=== PATIENT | male | born 1945 | race Caucasian/White ===

== ENCOUNTER 2018-03-21 14:55 | Inpatient (IN) | payer MEDICARE, BC ==
--- NOTE | 2018-03-21 15:28 | ED ---
General Adult HPI - General Chief complaint: Shortness of Breath Stated complaint: sent him for irregular arrhythmia Time Seen by Provider: 03/21/18 15:20 Source: patient, RN notes reviewed Mode of arrival: wheelchair Limitations: no limitations - History of Present Illness Initial comments: Patient is a pleasant 72-year-old male presenting to the emergency Department with concern for atrial fibrillation. Patient states he went to the doctor's office for some mild shortness of breath and cough that has been occurring for the past several days. Patient states shortness of breath has occurred while lying down and sleep as well as with some exertion. No history of similar symptoms previously. Patient did recently have pneumonia. No fever. No chest pain. No palpitations. Patient was found to have irregular heartbeat and sent to emergency department. - Related Data Home Medications Medication Instructions Recorded Confirmed Aspirin 650 mg PO ONCE PRN 03/21/18 03/21/18 Lisinopril 40 mg PO DAILY 03/21/18 03/21/18 Metoprolol Tartrate [Lopressor] 50 mg PO DIRECTED 03/21/18 03/21/18 Allergies Allergy/AdvReac Type Severity Reaction Status Date / Time No Known Allergies Allergy Verified 03/21/18 16:32 Review of Systems ROS Statement: Those systems with pertinent positive or pertinent negative responses have been documented in the HPI. ROS Other: All systems not noted in ROS Statement are negative. Constitutional: Denies: fever, chills Eyes: Denies: eye pain ENT: Denies: ear pain Respiratory: Reports: cough, dyspnea Cardiovascular: Denies: chest pain, palpitations Endocrine: Reports: fatigue Gastrointestinal: Denies: abdominal pain, nausea, vomiting Genitourinary: Denies: dysuria Musculoskeletal: Denies: back pain Skin: Denies: rash Neurological: Denies: weakness Past Medical History Past Medical History: Hypertension History of Any Multi-Drug Resistant Organisms: None Reported Past Surgical History: Orthopedic Surgery Past Psychological History: No Psychological Hx Reported Smoking Status: Current every day smoker Past Alcohol Use History: None Reported Past Drug Use History: None Reported General Exam Limitations: no limitations General appearance: alert, in no apparent distress Head exam: Present: atraumatic Eye exam: Present: normal appearance ENT exam: Present: normal exam Neck exam: Present: normal inspection Respiratory exam: Present: normal lung sounds bilaterally. Absent: respiratory distress Cardiovascular Exam: Present: tachycardia, irregular rhythm Expanded Peripheral pulses: 2+: Radial (R), Radial (L), Dorsalis Pedis (R), Dorsalis Pedis (L) GI/Abdominal exam: Present: soft. Absent: tenderness Extremities exam: Present: pedal edema (Trace bilateral). Absent: calf tenderness Back exam: Present: normal inspection Neurological exam: Present: alert Psychiatric exam: Present: normal affect, normal mood Skin exam: Present: normal color Course Vital Signs 03/21/18 03/21/18 03/21/18 15:02 15:13 15:53 Temperature 97.7 F Pulse Rate 57 L 98 Respiratory 18 18 Rate Blood Pressure 158/108 O2 Sat by Pulse 98 Oximetry 03/21/18 16:22 Temperature Pulse Rate 93 Respiratory 18 Rate Blood Pressure 105/88 O2 Sat by Pulse 96 Oximetry EKG Findings - EKG Comments: EKG Findings:: A. fib with RVR, rate 1:15. QRS 118. QT 366. QTc 506. Left axis. Incomplete right bundle-branch block. No acute ST change. Medical Decision Making - Medical Decision Making Patient reevaluated and updated. Heart rate in the unchanged. Case discussed in detail with Dr. Estrella, who will admit his patient with consult for cardiology. Patient updated. - Lab Data Result diagrams: 03/21/18 15:39 03/21/18 15:39 Lab Results 03/21/18 03/21/18 03/21/18 Range/Units 15:39 15:39 15:39 WBC 13.7 H (3.8-10.6) k/uL RBC 5.10 (4.30-5.90) m/uL Hgb 14.8 (13.0-17.5) gm/dL Hct 45.4 (39.0-53.0) % MCV 89.0 (80.0-100.0) fL MCH 28.9 (25.0-35.0) pg MCHC 32.5 (31.0-37.0) g/dL RDW 14.0 (11.5-15.5) % Plt Count 249 (150-450) k/uL Neutrophils % 70 % Lymphocytes % 19 % Monocytes % 6 % Eosinophils % 3 % Basophils % 1 % Neutrophils # 9.5 H (1.3-7.7) k/uL Lymphocytes # 2.6 (1.0-4.8) k/uL Monocytes # 0.9 (0-1.0) k/uL Eosinophils # 0.3 (0-0.7) k/uL Basophils # 0.1 (0-0.2) k/uL PT (9.0-12.0) sec INR (<1.2) APTT (22.0-30.0) sec Sodium 139 (137-145) mmol/L Potassium 4.7 (3.5-5.1) mmol/L Chloride 108 H (98-107) mmol/L Carbon Dioxide 22 (22-30) mmol/L Anion Gap 9 mmol/L BUN 15 (9-20) mg/dL Creatinine 1.05 (0.66-1.25) mg/dL Est GFR (CKD-EPI)AfAm 82 (>60 ml/min/1.73 sqM) Est GFR (CKD-EPI)NonAf 71 (>60 ml/min/1.73 sqM) Glucose 119 H (74-99) mg/dL Calcium 9.5 (8.4-10.2) mg/dL Magnesium 2.0 (1.6-2.3) mg/dL Total Bilirubin 0.9 (0.2-1.3) mg/dL AST 29 (17-59) U/L ALT 36 (21-72) U/L Alkaline Phosphatase 75 (38-126) U/L Total Creatine Kinase 53 L (55-170) U/L CK-MB (CK-2) 1.2 (0.0-2.4) ng/mL CK-MB (CK-2) Rel Index 2.3 Troponin I 0.036 H* (0.000-0.034) ng/mL Total Protein 7.3 (6.3-8.2) g/dL Albumin 4.2 (3.5-5.0) g/dL TSH 2.450 (0.465-4.680) mIU/L Free T4 1.06 (0.78-2.19) ng/dL Free T3 pg/mL 3.8 (2.8-5.3) pg/ml 03/21/18 Range/Units 15:39 WBC (3.8-10.6) k/uL RBC (4.30-5.90) m/uL Hgb (13.0-17.5) gm/dL Hct (39.0-53.0) % MCV (80.0-100.0) fL MCH (25.0-35.0) pg MCHC (31.0-37.0) g/dL RDW (11.5-15.5) % Plt Count (150-450) k/uL Neutrophils % % Lymphocytes % % Monocytes % % Eosinophils % % Basophils % % Neutrophils # (1.3-7.7) k/uL Lymphocytes # (1.0-4.8) k/uL Monocytes # (0-1.0) k/uL Eosinophils # (0-0.7) k/uL Basophils # (0-0.2) k/uL PT 10.9 (9.0-12.0) sec INR 1.1 (<1.2) APTT 22.7 (22.0-30.0) sec Sodium (137-145) mmol/L Potassium (3.5-5.1) mmol/L Chloride (98-107) mmol/L Carbon Dioxide (22-30) mmol/L Anion Gap mmol/L BUN (9-20) mg/dL Creatinine (0.66-1.25) mg/dL Est GFR (CKD-EPI)AfAm (>60 ml/min/1.73 sqM) Est GFR (CKD-EPI)NonAf (>60 ml/min/1.73 sqM) Glucose (74-99) mg/dL Calcium (8.4-10.2) mg/dL Magnesium (1.6-2.3) mg/dL Total Bilirubin (0.2-1.3) mg/dL AST (17-59) U/L ALT (21-72) U/L Alkaline Phosphatase (38-126) U/L Total Creatine Kinase (55-170) U/L CK-MB (CK-2) (0.0-2.4) ng/mL CK-MB (CK-2) Rel Index Troponin I (0.000-0.034) ng/mL Total Protein (6.3-8.2) g/dL Albumin (3.5-5.0) g/dL TSH (0.465-4.680) mIU/L Free T4 (0.78-2.19) ng/dL Free T3 pg/mL (2.8-5.3) pg/ml - Radiology Data Radiology results: image reviewed (Chest x-ray shows cardiomegaly) Critical Care Time Critical Care Time: Yes Total Critical Care Time: 32 Disposition Clinical Impression: Atrial fibrillation with RVR Disposition: ADMITTED IP TO THIS HOSP Is patient prescribed a controlled substance at d/c from ED?: No Referrals: Zhang Almonte Jr, [Primary Care Provider] - 1-2 days Decision Time: 17:12
--- NOTE | 2018-03-21 16:15 | XR ---
EXAMINATION TYPE: XR chest 2V DATE OF EXAM: 03/21/2018 COMPARISON: NONE HISTORY: Shortness of breath and atrial fibrillation. TECHNIQUE: Frontal and lateral views of the chest are obtained. FINDINGS: Overlying EKG leads are seen. There is no focal air space opacity, pleural effusion, or pne umothorax seen. The cardiac silhouette size is enlarged. The osseous structures are intact. IMPRESSION: Cardiomegaly without acute pulmonary process.
[2018-03-21 16:17] LABS: Basophils # (A) 0.1 k/uL (0-0.2); Basophils % (A) 1 %; Eosinophils # (A) 0.3 k/uL (0-0.7); Eosinophils % (A) 3 %; HCT 45.4 % (39.0-53.0); HGB 14.8 gm/dL (13.0-17.5); Lymphocytes # (A) 2.6 k/uL (1.0-4.8); Lymphocytes % (A) 19 %; MCH 28.9 pg (25.0-35.0); MCHC 32.5 g/dL (31.0-37.0); Mean Platelet Volume 7.5; Monocytes # (A) 0.9 k/uL (0-1.0); Monocytes % (A) 6 %; Neutrophils # (A) 9.5 k/uL (1.3-7.7); Neutrophils % (A) 70 %; Platelet Count 249 k/uL (150-450); WBC 13.7 k/uL (3.8-10.6)
[2018-03-21 16:27] LABS: Albumin 4.2 g/dL (3.5-5.0); Calcium 9.5 mg/dL (8.4-10.2); Potassium 4.7 mmol/L (3.5-5.1); Total Bilirubin 0.9 mg/dL (0.2-1.3); Total Protein 7.3 g/dL (6.3-8.2)
[2018-03-21 16:33] LABS: INR 1.1 (<1.2); Partial Thromboplastin Time 22.7 sec (22.0-30.0); Prothrombin Time 10.9 sec (9.0-12.0)
[2018-03-21] MEDS: DILTIAZEM 50 MG in SODIUM CHLORIDE 0.9% 40 ML IV SCH (16:40)
[2018-03-21 16:43] LABS: T4, Free (Free Thyroxine) 1.06 ng/dL (0.78-2.19)
[2018-03-21 16:55] LABS: Creatine Kinase MB 1.2 ng/mL (0.0-2.4)
[2018-03-21 17:02] LABS: Troponin I 0.036 ng/mL (0.000-0.034)
[2018-03-21] MEDS ORDERED: ASPIRIN 81 MG PO STA (17:12)
[2018-03-21] MEDS ORDERED: NITROGLYCERIN SL TABS 0.4 MG TAB SUBLINGUAL PRN (17:12)
[2018-03-21] MEDS ORDERED: HEPARIN SODIUM,PORCINE 5,000 UNIT/ML 1 ML VIAL IV PRN (17:12)
[2018-03-21] MEDS ORDERED: HEPARIN SODIUM,PORCINE 5,000 UNIT/ML 1 ML VIAL IV ONE (17:12)
[2018-03-21] MEDS ORDERED: HEPARIN SOD,PORK IN 0.45% NACL 25,000 UNIT in 0.45% NACL 1 500ML.BAG IV SCH (17:15)
[2018-03-21] MEDS ORDERED: METOPROLOL TARTRATE 50 MG TAB PO SCH (17:15)
[2018-03-21 19:33] LABS: Creatine Kinase MB 1.1 ng/mL (0.0-2.4)
[2018-03-21 19:38] LABS: Troponin I 0.045 ng/mL (0.000-0.034)
[2018-03-22 02:54] LABS: Creatine Kinase MB 0.9 ng/mL (0.0-2.4)
[2018-03-22 02:59] LABS: Troponin I 0.042 ng/mL (0.000-0.034)
[2018-03-22] MEDS: DILTIAZEM 50 MG in SODIUM CHLORIDE 0.9% 40 ML IV SCH (04:45)
[2018-03-22 08:03] LABS: Cholesterol 147 mg/dL (<200); HDL Cholesterol 32 mg/dL (40-60); LDL Cholesterol,Calculated 79 mg/dL (0-99); Triglycerides 180 mg/dL (<150)
[2018-03-22] MEDS: METOPROLOL TARTRATE 50 MG TAB PO SCH ×2 (08:55→20:43)
[2018-03-22] MEDS: LISINOPRIL 20 MG TAB PO SCH (08:56)
[2018-03-22] MEDS ORDERED: ASPIRIN 325 MG TAB PO SCH (09:00)
[2018-03-22 09:59] LABS: Mean Platelet Volume 7.4; Platelet Count 204 k/uL (150-450)
--- NOTE | 2018-03-22 11:00 | P.CRDCN ---
History of Present Illness Consult date: 03/22/18 Requesting physician: Zhang Almonte Jr Consult reason: atrial fibrillation Chief complaint: Shortness of breath History of present illness: His is a 72-year-old gentleman with history of hypertension, family history of premature coronary artery disease in his mother who had a myocardial infarction at the age of 50, who presented to the hospital after an EKG was performed at his primary care doctor's office which showed atrial fibrillation with rapid ventricular response. According to the patient, he has had 2 bad bouts of pneumonia over the past few months. He states that he has been more short of breath than usual, and just walking to the mailbox he becomes somewhat weak and tired. He denies any overt palpitations, no discomfort in the chest. He went to see his primary care physician in the office because of these symptoms, and EKG was performed there. Patient was found to be in A. fib with RVR and was brought to the emergency room for further evaluation. According to the patient, he has not been told in the past to have any irregular heartbeat. Chest x-ray on admission here showed cardiomegaly without any acute pulmonary process. Initial EKG showed atrial fibrillation with right bundle branch block pattern, nonspecific ST-T wave changes and rapid ventricular response. Blood pressure on arrival 158/108, heart rate in the 90s, 98% on room air. I pressure this morning 123/60 with a heart rate in the low 100s, 98% on room air. White blood cell count 13.7, heme 1114.8, platelet count 249. Sodium 139 , potassium 4.7, BUN 15, creatinine 1.05. Troponins 0.036, 0.045, 0.042. TSH and free T4 are normal. Cholesterol 147, LDL 79, triglycerides 180, and HDL 32. At the time of my examination this morning, patient is lying down in bed, feels a little tired but overall I did have a discussion with him and his regarding the importance of anticoagulation with atrial fibrillation for stroke prevention. He is currently on IV heparin, we will start him on Eliquis and check regarding coverage for the patient. We will also decrease his aspirin to 81 mg daily. Past Medical History Past Medical History: Asthma, Hypertension Additional Past Medical History / Comment(s): asthma as chil- no problem since, aubrie, "humairattered lt elboe(sx), pt stated "it takes med a bit to get stream going when i pee" History of Any Multi-Drug Resistant Organisms: None Reported Past Surgical History: Orthopedic Surgery, Tonsillectomy Additional Past Surgical History / Comment(s): lt elbow sx,4 upper dental implants Past Anesthesia/Blood Transfusion Reactions: No Reported Reaction Smoking Status: Former smoker - Past Family History Mother Family Medical History: Myocardial Infarction (ID) Additional Family Medical History / Comment(s): age 50 from [place] Father Additional Family Medical History / Comment(s): age 71 -[place] Brother(s) History Unknown: Yes Additional Family Medical History / Comment(s): has 3 brothers hx unk Sister(s) History Unknown: Yes Additional Family Medical History / Comment(s): 1 sister- hx unk Medications and Allergies Home Medications Medication Instructions Recorded Confirmed Type Aspirin 650 mg PO ONCE PRN 03/21/18 03/21/18 History Lisinopril 40 mg PO DAILY 03/21/18 03/21/18 History Metoprolol Tartrate [Lopressor] 50 mg PO DIRECTED 03/21/18 03/21/18 History Allergies Allergy/AdvReac Type Severity Reaction Status Date / Time No Known Allergies Allergy Verified 03/21/18 16:32 Physical Exam Vitals: Vital Signs Temp Pulse Pulse Resp BP BP Pulse Ox 03/22/18 08:00 98.4 F 105 H 18 123/64 98 03/22/18 04:00 98.7 F 103 H 18 144/95 97 03/22/18 00:00 90 20 115/67 97 03/21/18 20:00 98.3 F 101 H 18 123/88 96 03/21/18 19:07 111 H 16 132/110 98 03/21/18 18:34 107 H 18 130/110 97 03/21/18 17:58 89 18 109/90 97 03/21/18 16:22 93 18 105/88 96 03/21/18 15:53 98 03/21/18 15:13 18 03/21/18 15:02 97.7 F 57 L 18 158/108 98 Intake and Output 03/21/18 03/22/18 03/22/18 22:59 06:59 14:59 Intake Total 216.329 406.058 Balance 216.329 406.058 Intake: Intake, IV Titration 216.329 166.058 Amount Diltiazem 50 mg In Sodium 50 Chloride 0.9% 40 ml @ 5 MG/HR 5 mls/hr IV .Q10H BR[facility]ON Rx#:[id number] Heparin Sod,Pork in 0.45% 166.329 166.058 NaCl 25,000 unit In 0.45 % NaCl 1 500ml.bag @ 10.8 UNITS/KG/HR 20.08 mls/hr IV .Q24H BRANDON Rx#: [id number] Oral 240 Other: Voiding Method Toilet Toilet Toilet # Voids 1 1 Weight 96.8 kg 96.8 kg PHYSICAL EXAMINATION: GENERAL: 72-year-old gentleman in no acute distress at the time of my examination HEENT: Head is atraumatic, normocephalic. Pupils equal, round. Sclera anicteric. Conjunctiva are clear. Mucous membranes of the mouth are moist. Neck is supple. There is no elevated jugular venous pressure. No carotid bruit is heard. HEART EXAMINATION: Heart S1, S2 normal. No murmur or gallop heard. CHEST EXAMINATION: Lungs are clear to auscultation and precussion. No chest wall tenderness is noted on palpation or with deep breathing. ABDOMEN: Soft, obese, nontender. Bowel sounds are heard. No organomegaly noted. EXTREMITIES: 2+ peripheral pulses with no evidence of peripheral edema and no calf tenderness noted. NEUROLOGIC patient is awake, alert and oriented 3. . Results 03/22/18 09:45 03/21/18 15:39 Cardiac Enzymes 03/21/18 03/21/18 03/21/18 Range/Units 15:39 15:39 18:02 AST 29 (17-59) U/L CK-MB (CK-2) 1.2 1.1 (0.0-2.4) ng/mL Troponin I 0.036 H* 0.045 H* (0.000-0.034) ng/mL 03/22/18 Range/Units 01:44 AST (17-59) U/L CK-MB (CK-2) 0.9 (0.0-2.4) ng/mL Troponin I 0.042 H* (0.000-0.034) ng/mL Coagulation 1103/21/18 03/22/18 Range/Units 15:39 18:02 01:44 PT 10.9 (9.0-12.0) sec APTT 22.7 23.1 31.1 H (22.0-30.0) sec 03/22/18 Range/Units 09:45 PT (9.0-12.0) sec APTT 30.8 H (22.0-30.0) sec Lipids 03/22/18 Range/Units 06:41 Triglycerides 180 H (<150) mg/dL Cholesterol 147 (<200) mg/dL HDL Cholesterol 32 L (40-60) mg/dL CBC 03/21/18 03/22/18 Range/Units 15:39 09:45 WBC 13.7 H (3.8-10.6) k/uL RBC 5.10 (4.30-5.90) m/uL Hgb 14.8 (13.0-17.5) gm/dL Hct 45.4 (39.0-53.0) % Plt Count 249 204 (150-450) k/uL Comprehensive Metabolic Panel 03/21/18 Range/Units 15:39 Sodium 139 (137-145) mmol/L Potassium 4.7 (3.5-5.1) mmol/L Chloride 108 H (98-107) mmol/L Carbon Dioxide 22 (22-30) mmol/L BUN 15 (9-20) mg/dL Creatinine 1.05 (0.66-1.25) mg/dL Glucose 119 H (74-99) mg/dL Calcium 9.5 (8.4-10.2) mg/dL AST 29 (17-59) U/L ALT 36 (21-72) U/L Alkaline Phosphatase 75 (38-126) U/L Total Protein 7.3 (6.3-8.2) g/dL Albumin 4.2 (3.5-5.0) g/dL Current Medications Generic Name Dose Route Start Last Admin Trade Name Freq PRN Reason Stop Dose Admin Aspirin 325 mg 03/22/18 09:00 03/22/18 08:56 Aspirin PO 325 mg DAILY BRANDON Administration Heparin Sodium (Porcine) 0 unit 03/21/18 17:12 Heparin IV Q6HR PRN Low PTT Protocol Diltiazem HCl 50 mg/ Sodium 50 mls @ 5 mls/hr 03/21/18 15:30 03/22/18 04:45 Chloride IV 5 mg/hr .Q10H BR[facility]ON 5 mls/hr Administration 5 MG/HR Heparin Sodium/Sodium Chloride 500 mls @ 20.08 mls/hr 03/21/18 17:15 08:58 25,000 unit/ Sodium Chloride IV 13.8 units/kg/hr .Q24H BRANDON 25.66 mls/hr Titration Protocol 10.8 UNITS/KG/HR Lisinopril 40 mg 03/22/18 09:00 03/22/18 08:56 Zestril PO 40 mg DAILY BRANDON Administration Metoprolol Tartrate 50 mg 03/22/18 09:00 03/22/18 08:55 Lopressor PO 50 mg BID BRANDON Administration Nitroglycerin 0.4 mg 03/21/18 17:12 Nitrostat SUBLINGUAL Q5M PRN Chest Pain Sodium Chloride 10 ml 03/21/18 21:00 03/22/18 09:00 Saline Flush IV Not Given BID BRANDON Intake and Output 03/21/18 03/22/18 03/22/18 22:59 06:59 14:59 Intake Total 216.329 406.058 Balance 216.329 406.058 Intake: Intake, IV Titration 216.329 166.058 Amount Diltiazem 50 mg In Sodium 50 Chloride 0.9% 40 ml @ 5 MG/HR 5 mls/hr IV .Q10H [facility] Rx#:[id number] Heparin Sod,Pork in 0.45% 166.329 166.058 NaCl 25,000 unit In 0.45 % NaCl 1 500ml.bag @ 10.8 UNITS/KG/HR 20.08 mls/hr IV .Q24H [facility]ON Rx#: [id number] Oral 240 Other: Voiding Method Toilet Toilet Toilet # Voids 1 1 Weight 96.8 kg 96.8 kg 03/22/18 09:45 03/21/18 15:39 EKG Interpretations (text) EKG shows atrial fibrillation with moderately rapid ventricular response Assessment and Plan Plan: Assessment and plan #1 atrial fibrillation with moderately rapid ventricular response, appears to be new for the patient, . #2 hypertension #3 family history of premature coronary artery disease #4 recent pneumonia #5 abnormal troponins likely representing a type II ID. Plan We'll obtain an echocardiogram with Doppler study. TSH level came back to be normal. We will discontinue the heparin and start the patient on Eliquis. Discontinue IV Cardizem, heart rate in the 80s this morning. Continue metoprolol 50 twice a day. Further recommendations to follow. DNP note has been reviewed, I agree with a documented findings and plan of care. Patient was seen and examined.
[2018-03-22] MEDS: APIXABAN 5 MG TAB PO SCH ×2 (11:14→20:43)
--- NOTE | 2018-03-22 11:17 | ECHOF ---
Referral Reason:New-onset A. fib MEASUREMENTS -------- HEIGHT: 180.3 cm WEIGHT: 96.6 kg BP: 144/95 RVIDd: 4.0 cm (< 3.3) IVSd: 1.3 cm (0.6 - 1.1) LVIDd: 5.4 cm (3.9 - 5.3) LVPWd: 1.3 cm (0.6 - 1.1) IVSs: 1.9 cm LVIDs: 4.2 cm LVPWs: 2.0 cm LA Diam: 3.2 cm (2.7 - 3.8) LAESV Index (A-L): 35.52 ml/m Ao Diam: 4.3 cm (2.0 - 3.7) AV Cusp: 2.2 cm (1.5 - 2.6) MV EXCURSION: 15.119 mm (> 18.000) MV EF SLOPE: 83 mm/s (70 - 150) EPSS: 1.5 cm AV maxP.13 mmHg AV meanP.25 mmHg AR PHT: 580 ms RAP: 15.00 mmHg RVSP: 56.36 mmHg FINDINGS -------- Atrial fibrillation. This was a technically adequate study. The left ventricular size is normal. There is mild concentric left ventricular hypertrophy. Overa ll left ventricular systolic function is moderate-severely impaired with, an EF between 30 - 35 %. The right ventricle is moderately enlarged. LA is moderately dilated 34-39 ml/m2 The right atrium is normal in size. There is mild aortic valve sclerosis. There is mild aortic regurgitation. Peak/mean gradient acro ss the Aortic Valve is 13.13mmHg / 7.25mmHg. The mitral valve leaflets are mildly thickened. [id number] mitral regurgitation is present. [id number] tricuspid regurgitation present. There is moderate to severe pulmonary hypertensio n. The right ventricular systolic pressure, as measured by Doppler, is 56.36mmHg. The pulmonic valve was not well visualized. The aortic root is dilated measuring 4.3cm. The inferior vena cava is dilated with poor inspiratory collapse which is consistent with estimated r ight atrial pressure of 15 mmHg. There is no pericardial effusion. CONCLUSIONS -------- 1. Atrial fibrillation. 2. This was a technically adequate study. 3. The left ventricular size is normal. 4. There is mild concentric left ventricular hypertrophy. 5. Overall left ventricular systolic function is moderate-severely impaired with, an EF between 30 - 35 %. 6. The right ventricle is moderately enlarged. 7. LA is moderately dilated 34-39 ml/m2 8. The right atrium is normal in size. 9. There is mild aortic valve sclerosis. 10. There is mild aortic regurgitation. 11. Peak/mean gradient across the Aortic Valve is 13.13mmHg / 7.25mmHg. 12. The mitral valve leaflets are mildly thickened. 13. [id number] mitral regurgitation is present. 14. [id number] tricuspid regurgitation present. 15. There is moderate to severe pulmonary hypertension. 16. The right ventricular systolic pressure, as measured by Doppler, is 56.36mmHg. 17. The pulmonic valve was not well visualized. 18. The aortic root is dilated measuring 4.3cm. 19. The inferior vena cava is dilated with poor inspiratory collapse which is consistent with estimat ed right atrial pressure of 15 mmHg. 20. There is no pericardial effusion. MEDIA RECONCILIATION SPECIALIST: Celena Mahmood RDCS
[2018-03-22] MEDS ORDERED: AMIODARONE 450 MG in DEXTROSE 5% IN WATER 250 ML IV SCH ×2 (13:00)
[2018-03-22] MEDS ORDERED: DEXTROSE 5% IN WATER 100 ML with AMIODARONE 150 MG IV ONE (13:00)
[2018-03-22] MEDS: AMIODARONE 450 MG in DEXTROSE 5% IN WATER 250 ML IV SCH ×4 (14:12→20:35)
--- NOTE | 2018-03-22 14:33 | P.HPIM ---
History of Present Illness H&P Date: 03/22/18 Chief Complaint: sent by PCP for afib 72-year-old male who presented to the emergency room on 03/21/2018 after he was evaluated at his primary care physicians office for a chief complaint of shortness of breath. An EKG performed at the office revealed atrial fib and the patient was sent to the emergency room for further evaluation. The patient has a history of hypertension. He is a former cigarette smoker and smoked 1 PPD until the age of 38. EKG on admission reveals atrial fibrillation with rapid ventricular response. Heart rate 115. Chest x-ray revealed cardiomegaly without acute pulmonary process. Laboratory data upon admission reveals WBC 13.7. Hemoglobin 14.8. Blood count 249. Sodium 139. Potassium 4.7. BUN 15. Creatinine 1.05. Magnesium 2.0. Troponin 0.036. 0.045. 0.042. TSH 2.45. Triglycerides 180. Cholesterol 147. LDL 79. HDL 32. He was started on a cardizem and heparin drip and admitted to the hospital under the care of Dr. Almonte. Consultations were placed to cardiology. Review of Systems Those systems with pertinent positive or pertinent negative responses have been documented in the HPI Past Medical History Past Medical History: Asthma, Hypertension Additional Past Medical History / Comment(s): asthma as chil- no problem since, aubrie, "shattered lt elboe(sx), pt stated "it takes med a bit to get stream going when i pee" History of Any Multi-Drug Resistant Organisms: None Reported Past Surgical History: Orthopedic Surgery, Tonsillectomy Additional Past Surgical History / Comment(s): lt elbow sx,4 upper dental implants Past Anesthesia/Blood Transfusion Reactions: No Reported Reaction Smoking Status: Former smoker - Past Family History Mother Family Medical History: Myocardial Infarction (NM) Additional Family Medical History / Comment(s): age 50 from [place] Father Additional Family Medical History / Comment(s): age 71 -[place] Brother(s) History Unknown: Yes Additional Family Medical History / Comment(s): has 3 brothers hx unk Sister(s) History Unknown: Yes Additional Family Medical History / Comment(s): 1 sister- hx unk Medications and Allergies Home Medications Medication Instructions Recorded Confirmed Type Aspirin 650 mg PO ONCE PRN 03/21/18 03/21/18 History Lisinopril 40 mg PO DAILY 03/21/18 03/21/18 History Metoprolol Tartrate [Lopressor] 50 mg PO DIRECTED 03/21/18 03/21/18 History Allergies Allergy/AdvReac Type Severity Reaction Status Date / Time No Known Allergies Allergy Verified 03/21/18 16:32 Physical Exam Vitals: Vital Signs Temp Pulse Pulse Resp BP BP Pulse Ox 03/22/18 08:00 98.4 F 105 H 18 123/64 98 03/22/18 04:00 98.7 F 103 H 18 144/95 97 03/22/18 00:00 90 20 115/67 97 03/21/18 20:00 98.3 F 101 H 18 123/88 96 03/21/18 19:07 111 H 16 132/110 98 03/21/18 18:34 107 H 18 130/110 97 03/21/18 17:58 89 18 109/90 97 03/21/18 16:22 93 18 105/88 96 03/21/18 15:53 98 03/21/18 15:13 18 03/21/18 15:02 97.7 F 57 L 18 158/108 98 Intake and Output 03/21/18 03/22/18 03/22/18 22:59 06:59 14:59 Intake Total 216.329 406.058 Balance 216.329 406.058 Intake: Intake, IV Titration 216.329 166.058 Amount Diltiazem 50 mg In Sodium 50 Chloride 0.9% 40 ml @ 5 MG/HR 5 mls/hr IV .Q10H [facility] Rx#:[id number] Heparin Sod,Pork in 0.45% 166.329 166.058 NaCl 25,000 unit In 0.45 % NaCl 1 500ml.bag @ 10.8 UNITS/KG/HR 20.08 mls/hr IV .Q24H [facility] Rx#: [id number] Oral 240 Other: Voiding Method Toilet Toilet Toilet # Voids 1 1 Weight 96.8 kg 96.8 kg GENERAL: This is a 72-year-old male in no apparent distress at the time of examination. Pleasant and cooperative. HEENT: Head is atraumatic, normocephalic. Pupils are equal, round, and reactive to light. Sclerae anicteric. Conjunctivae are clear. Mucus membranes of the mouth are moist. Neck is supple. RESPIRATORY: Clear to auscultation. No wheezes, rales, or rhonchi. No use of accessory muscles. Patient maintaining oxygen saturation greater than 92%. No chest wall tenderness is noted on palpation or with deep breathing. CARDIOVASCULAR: Irregular rhythm. S1 and S2 noted. No JVD noted. No S3 or S4 noted. GASTROINTESTINAL: No distention noted. Abdomen soft and round. Normal active bowel sounds auscultated x 4 quadrants. No pain or tenderness noted upon palpation. INTEGUMENTARY: No cyanosis. No jaundice. No rashes noted. No cellulitis noted. EXTREMITIES: 2+ peripheral pulses. No evidence of peripheral edema. No calf tenderness noted. NEUROLOGIC: Cranial nerves II-XII intact. PSYCHIATRIC: Awake, alert, and oriented X 3. Appropriate affect. Intact judgement and insight. Results CBC & Chem 7: 03/22/18 09:45 03/21/18 15:39 Labs: Abnormal Lab Results - Last 24 Hours (Table) 03/21/18 03/21/18 03/21/18 Range/Units 15:39 15:39 15:39 WBC 13.7 H (3.8-10.6) k/uL Neutrophils # 9.5 H (1.3-7.7) k/uL APTT (22.0-30.0) sec Chloride 108 H (98-107) mmol/L Glucose 119 H (74-99) mg/dL Total Creatine Kinase 53 L (55-170) U/L Troponin I 0.036 H* (0.000-0.034) ng/mL Triglycerides (<150) mg/dL HDL Cholesterol (40-60) mg/dL 03/21/18 03/22/18 03/22/18 Range/Units 18:02 01:44 01:44 WBC (3.8-10.6) k/uL Neutrophils # (1.3-7.7) k/uL APTT 31.1 H (22.0-30.0) sec Chloride (98-107) mmol/L Glucose (74-99) mg/dL Total Creatine Kinase 51 L 41 L (55-170) U/L Troponin I 0.045 H* 0.042 H* (0.000-0.034) ng/mL Triglycerides (<150) mg/dL HDL Cholesterol (40-60) mg/dL 03/22/18 Range/Units 06:41 WBC (3.8-10.6) k/uL Neutrophils # (1.3-7.7) k/uL APTT (22.0-30.0) sec Chloride (98-107) mmol/L Glucose (74-99) mg/dL Total Creatine Kinase (55-170) U/L Troponin I (0.000-0.034) ng/mL Triglycerides 180 H (<150) mg/dL HDL Cholesterol 32 L (40-60) mg/dL Thrombosis Risk Factor Assmnt - Choose All That Apply Any of the Below Risk Factors Present?: Yes Each Factor Represents 1 point: Obesity (BMI >25) Each Risk Factor Represents 2 Points: Age 61-74 years Thrombosis Risk Factor Assessment Total Risk Factor Score: 3 Thrombosis Risk Factor Assessment Level: Moderate Risk Assessment and Plan Plan: ASSESSMENT: New onset atrial fibrillation with RVR Hypertension Remote history of nicotine dependence PLAN: Cardiology on consult. Appreciate recommendations and input Await results of echocardiogram Continue Cardizem and heparin drip per cardiology Home meds as appropriate Monitor labs Monitor vital signs and address as appropriate Discharge planning: Patient to return home when stable Further recommendations pending patient's course Nurse practitioner note has been reviewed by physician. Signing provider agrees with the documented findings, assessment, and plan of care.
[2018-03-22] MEDS: FUROSEMIDE 10 MG/ML 2 ML VIAL IV SCH ×2 (14:36→20:46)
[2018-03-22] MEDS ORDERED: FUROSEMIDE 10 MG/ML 4 ML VIAL ONE (20:25)
[2018-03-23 07:19] LABS: Mean Platelet Volume 7.7; Platelet Count 212 k/uL (150-450)
[2018-03-23] MEDS: AMIODARONE 450 MG in DEXTROSE 5% IN WATER 250 ML IV SCH ×6 (07:51→19:38)
[2018-03-23 08:18] LABS: Calcium 9.1 mg/dL (8.4-10.2); Potassium 4.8 mmol/L (3.5-5.1)
--- NOTE | 2018-03-23 09:09 | P.PN ---
Subjective Progress Note Date: 03/23/18 03/22/2018 72-year-old male who presented to the emergency room on 03/21/2018 after he was evaluated at his primary care physicians office for a chief complaint of shortness of breath. An EKG performed at the office revealed atrial fib and the patient was sent to the emergency room for further evaluation. The patient has a history of hypertension. He is a former cigarette smoker and smoked 1 PPD until the age of 38. EKG on admission reveals atrial fibrillation with rapid ventricular response. Heart rate 115. Chest x-ray revealed cardiomegaly without acute pulmonary process. Laboratory data upon admission reveals WBC 13.7. Hemoglobin 14.8. Blood count 249. Sodium 139. Potassium 4.7. BUN 15. Creatinine 1.05. Magnesium 2.0. Troponin 0.036. 0.045. 0.042. TSH 2.45. Triglycerides 180. Cholesterol 147. LDL 79. HDL 32. He was started on a cardizem and heparin drip and admitted to the hospital under the care of Dr. Almonte. Consultations were placed to cardiology. 03/23/2018 Patient examined at the bedside on the selective care unit. Patient underwent echocardiogram yesterday which revealed ejection fraction between 30 and 35%, [id number] mitral regurgitation, mild to moderate tricuspid regurgitation , moderate to severe pulmonary hypertension with RVSP of 56.36. BNP was 3890. He was started on Lasix 20 mg every 12 hours per cardiology. He remains on an amio drip. Telemetry reveals afib. Rate controlled. He was started on Eliquis and aspirin per cardiology. The patient is very anxious to be discharged home. Objective - Vital Signs Vital signs: Vital Signs Temp 97.6 F 03/23/18 04:00 Pulse 96 03/23/18 04:00 Resp 18 03/23/18 04:00 BP 111/66 03/23/18 04:00 Pulse Ox 97 03/23/18 04:00 Intake & Output 03/22/18 03/23/18 03/23/18 18:59 06:59 18:59 Intake Total 826.058 216.099 Output Total 0 Balance 826.058 216.099 Weight 101.2 kg Intake: Intake, IV Titration 166.058 216.099 Amount Amiodarone 450 mg In 216.099 Dextrose 5% in Water 250 ml @ 1 MG/MIN 34.53 mls/ hr IV .Q7H31M [facility] Rx#: [id number] Heparin Sod,Pork in 0.45% 166.058 NaCl 25,000 unit In 0.45 % NaCl 1 500ml.bag @ 10.8 UNITS/KG/HR 20.08 mls/hr IV .Q24H [facility] Rx#: [id number] Oral 660 Output: Urine 0 Other: Voiding Method Toilet Toilet # Voids 1 - Exam GENERAL: This is a 72-year-old male in no apparent distress at the time of examination. Pleasant and cooperative. HEENT: Head is atraumatic, normocephalic. Pupils are equal, round, and reactive to light. Sclerae anicteric. Conjunctivae are clear. Mucus membranes of the mouth are moist. Neck is supple. RESPIRATORY: Clear to auscultation. No wheezes, rales, or rhonchi. No use of accessory muscles. Patient maintaining oxygen saturation greater than 92%. No chest wall tenderness is noted on palpation or with deep breathing. CARDIOVASCULAR: Irregular rhythm. S1 and S2 noted. No JVD noted. No S3 or S4 noted. GASTROINTESTINAL: No distention noted. Abdomen soft and round. Normal active bowel sounds auscultated x 4 quadrants. No pain or tenderness noted upon palpation. INTEGUMENTARY: No cyanosis. No jaundice. No rashes noted. No cellulitis noted. EXTREMITIES: 2+ peripheral pulses. No evidence of peripheral edema. No calf tenderness noted. NEUROLOGIC: Cranial nerves II-XII intact. PSYCHIATRIC: Awake, alert, and oriented X 3. Appropriate affect. Intact judgement and insight. - Labs CBC & Chem 7: 03/23/18 06:28 03/23/18 06:28 Labs: Abnormal Lab Results - Last 24 Hours (Table) 03/22/18 03/23/18 Range/Units 09:45 06:28 APTT 30.8 H (22.0-30.0) sec Glucose 127 H (74-99) mg/dL Assessment and Plan Plan: ASSESSMENT: New onset atrial fibrillation with RVR, persistent, rate currently controlled Hypertension Acute exacerbation of systolic congestive heart failure, BNP 3890, EF 30-35% Remote history of nicotine dependence PLAN: Cardiology on consult. Appreciate recommendations and input Continue IV lasix per cardiology. If patient is to continue on IV lasix today, recommend changing times to 0900 and 1700 as patient was upset about receiving lasix so late last night Await results of BMP Home meds as appropriate Monitor labs Monitor vital signs and address as appropriate Discharge planning: Patient to return home when stable Further recommendations pending patient's course Patient is extremely anxious to be discharged home. Await further recommendations from cardiology. Nurse practitioner note has been reviewed by physician. Signing provider agrees with the documented findings, assessment, and plan of care.
[2018-03-23] MEDS: ASPIRIN 81 MG PO SCH (09:35)
[2018-03-23] MEDS: LISINOPRIL 20 MG TAB PO SCH (09:35)
[2018-03-23] MEDS: FUROSEMIDE 10 MG/ML 2 ML VIAL IV SCH (09:36)
[2018-03-23] MEDS: APIXABAN 5 MG TAB PO SCH ×2 (09:36→20:10)
[2018-03-23] MEDS: METOPROLOL TARTRATE 50 MG TAB PO SCH ×2 (09:36→20:10)
[2018-03-23 15:03] VITALS: BMI 31.1
--- NOTE | 2018-03-23 15:19 | P.PN ---
Subjective Progress Note Date: 03/23/18 This is a 72-year-old gentleman with history of hypertension, family history of premature coronary artery disease in his mother who had a myocardial infarction at the age of 50, who presented to the hospital after an EKG was performed at his primary care doctor's office which showed atrial fibrillation with rapid ventricular response. According to the patient, he has had 2 bad bouts of pneumonia over the past few months. He states that he has been more short of breath than usual, and just walking to the mailbox he becomes somewhat weak and tired. He denies any overt palpitations, no discomfort in the chest. He went to see his primary care physician in the office because of these symptoms, and EKG was performed there. Patient was found to be in A. fib with RVR and was brought to the emergency room for further evaluation. According to the patient, he has not been told in the past to have any irregular heartbeat. Chest x-ray on admission here showed cardiomegaly without any acute pulmonary process. Initial EKG showed atrial fibrillation with right bundle branch block pattern, nonspecific ST-T wave changes and rapid ventricular response. Blood pressure on arrival 158/108, heart rate in the 90s, 98% on room air. I pressure this morning 123/60 with a heart rate in the low 100s, 98% on room air. White blood cell count 13.7, heme 1114.8, platelet count 249. Sodium 139 , potassium 4.7, BUN 15, creatinine 1.05. Troponins 0.036, 0.045, 0.042. TSH and free T4 are normal. Cholesterol 147, LDL 79, triglycerides 180, and HDL 32. At the time of my examination this morning, patient is lying down in bed, feels a little tired but overall I did have a discussion with him and his regarding the importance of anticoagulation with atrial fibrillation for stroke prevention. He is currently on IV heparin, we will start him on Eliquis and check regarding coverage for the patient. We will also decrease his aspirin to 81 mg daily. Patient seen and examined today, echo cardiac gram with Doppler study revealed an ejection fraction of 30-35% with moderate MR and moderate TR, moderate to severe pulmonary hypertension. We will discontinue the IV Lasix today, put the patient on oral. Amiodarone has been discontinued and we have also started him on oral amiodarone. He continues to be in atrial fibrillation with a controlled ventricular response, on Eliquis for anticoagulation, plan on discharge home in 24 hours if stable. Objective - Vital Signs Vital signs: Vital Signs Temp 97.9 F 03/23/18 12:00 Pulse 96 03/23/18 12:00 Resp 16 03/23/18 12:00 BP 132/78 03/23/18 12:00 Pulse Ox 94 L 03/23/18 12:00 Intake & Output 03/22/18 03/23/18 03/23/18 18:59 06:59 18:59 Intake Total 826.058 216.099 790 Output Total 0 Balance 826.058 216.099 790 Weight 101.2 kg 101.2 kg Intake: Intake, IV Titration 166.058 216.099 310 Amount Amiodarone 450 mg In 216.099 259 Dextrose 5% in Water 250 ml @ 1 MG/MIN 34.53 mls/ hr IV .Q7H31M [facility] Rx#: [id number] Dextrose 5% in Water 100 51 ml @ 618 mls/hr IV .Q10M ONE with Amiodarone 150 mg Rx#:[id number] Heparin Sod,Pork in 0.45% 166.058 NaCl 25,000 unit In 0.45 % NaCl 1 500ml.bag @ 10.8 UNITS/KG/HR 20.08 mls/hr IV .Q24H [facility] Rx#: [id number] Oral 660 480 Output: Urine 0 Other: Voiding Method Toilet Toilet Toilet # Voids 1 - Exam PHYSICAL EXAMINATION: GENERAL: 72-year-old gentleman in no acute distress at the time of my examination HEENT: Head is atraumatic, normocephalic. Pupils equal, round. Sclera anicteric. Conjunctiva are clear. Mucous membranes of the mouth are moist. Neck is supple. There is no elevated jugular venous pressure. No carotid bruit is heard. HEART EXAMINATION: Heart S1, S2 normal. No murmur or gallop heard. CHEST EXAMINATION: Lungs are clear to auscultation and precussion. No chest wall tenderness is noted on palpation or with deep breathing. ABDOMEN: Soft, obese, nontender. Bowel sounds are heard. No organomegaly noted. EXTREMITIES: 2+ peripheral pulses with no evidence of peripheral edema and no calf tenderness noted. NEUROLOGIC patient is awake, alert and oriented 3. . - Labs CBC & Chem 7: 03/23/18 06:28 03/23/18 06:28 Labs: Abnormal Lab Results - Last 24 Hours (Table) 03/23/18 Range/Units 06:28 Glucose 127 H (74-99) mg/dL Assessment and Plan Plan: Assessment and plan #1 atrial fibrillation with moderately rapid ventricular response, appears to be new for the patient, . #2 hypertension #3 family history of premature coronary artery disease #4 recent pneumonia #5 abnormal troponins likely representing a type II [place]. Plan Cardiac gram with Doppler study was performed which revealed an ejection fraction of 30-35%. Amiodarone IV is discontinued and patient has been initiated on oral amiodarone. Is also on Eliquis for anticoagulation. Plan on discharge home in any 4 hours if stable. DNP note has been reviewed, I agree with a documented findings and plan of care. Patient was seen and examined.
[2018-03-23] MEDS: AMIODARONE 200 MG TAB PO SCH ×2 (15:37→20:11)
[2018-03-24] MEDS: AMIODARONE 450 MG in DEXTROSE 5% IN WATER 250 ML IV SCH ×2 (04:43)
[2018-03-24 06:50] LABS: Mean Platelet Volume 7.8; Platelet Count 221 k/uL (150-450)
[2018-03-24 07:45] VITALS: BP 120/90; PULSE 82; RESP 19; TEMP 97
[2018-03-24] MEDS: AMIODARONE 200 MG TAB PO SCH (07:45)
[2018-03-24] MEDS: LISINOPRIL 20 MG TAB PO SCH (07:45)
[2018-03-24] MEDS: ASPIRIN 81 MG PO SCH (07:45)
[2018-03-24] MEDS: METOPROLOL TARTRATE 50 MG TAB PO SCH (07:45)
[2018-03-24] MEDS: APIXABAN 5 MG TAB PO SCH (07:46)
[2018-03-24] MEDS ORDERED: FUROSEMIDE 40 MG TAB PO SCH (09:00)
--- NOTE | 2018-03-24 11:09 | P.PN ---
Subjective Progress Note Date: 03/24/18 Principal diagnosis: New onset A. fib with RVR Paras is a 72 -year-old male well-known to my practice who presented to the hospital from our office with new onset atrial fibrillation with RVR, in early heart failure. Echocardiogram demonstrated EF of 35. Patient was initially placed on a amiodarone drip, he is currently on oral amiodarone the drip was stopped patient is currently rate controlled rate in the 80s current blood pressure 125/ 63 respiratory rate is 19 Patient states he feels the best he is felt couple of weeks. And he wants to go home. Objective - Vital Signs Vital signs: Vital Signs Temp 97 F L 03/24/18 07:44 Pulse 82 03/24/18 07:44 Resp 19 03/24/18 07:44 BP 120/90 03/24/18 07:44 Pulse Ox 96 03/24/18 07:44 Intake & Output 03/23/18 03/24/18 03/24/18 18:59 06:59 18:59 Intake Total 1510 230 Output Total 400 Balance 1510 -170 Weight 101.2 kg 94 kg Intake: Intake, IV Titration 310 Amount Amiodarone 450 mg In 259 Dextrose 5% in Water 250 ml @ 1 MG/MIN 34.53 mls/ hr IV .Q7H31M [facility] Rx#: [id number] Dextrose 5% in Water 100 51 ml @ 618 mls/hr IV .Q10M [facility] with Amiodarone 150 mg Rx#:[id number] Oral 1200 230 Output: Urine 400 Other: Voiding Method Toilet Toilet Toilet # Voids 3 6 1 - Exam General: [Patient awake, alert and oriented times 3. Patient in no acute distress.] HEENT: [PERRL. EOMI. No pharyngeal erythema or exudate.] Neck: [No adenopathy.] Cardiac: [Heart regularly irregular rate of 70s to 80s No S3. No S4. No clicks , rubs. No murmur.] Lungs: [Clear to auscultation bilaterally.] Abdomen: [No mass. No organomegaly. Bowel sounds presnt and normoactive in all 4 quadrants.] Extremes: [No edema no cyanosis no claudication normal pulses] : [] Musculoskeletal: [No joint erythema, edema or tenderness.] Skin: [No rash.] Neurologic: [No lateralizing deficits. CN II - XII grossly intact.] Lymphatic: [No adenopathy.] - Labs CBC & Chem 7: 03/24/18 06:08 03/23/18 06:28 Assessment and Plan (1) Atrial fibrillation with RVR Narrative/Plan: Currently on amiodarone lisinopril, Lopressor, Eliquis baby aspirin and amiodarone Rate currently controlled Patient to be discharged home today, with the blessing of cardiology Discharged on the above meds with instructions to follow-up in my office next week Monday or Monday with cardiology in a week Current Visit: Yes Status: Acute Code(s): I48.91 - UNSPECIFIED ATRIAL FIBRILLATION SNOMED Code(s): 829086592253730 Plan: Discharge home today Time with Patient: Greater than 30
--- NOTE | 2018-03-24 11:12 | P.DS ---
Providers Date of admission: 03/21/18 17:13 Expected date of discharge: 03/24/18 Attending physician: Zhang Almonte Consults: 03/21/18 17:12 Consult Physician Urgent Consulting Provider: Marycruz Copeland Consult Reason/Comments: a fib w rvr Do you want consulting provider notified?: Yes Primary care physician: Zhang Almonte - Discharge Diagnosis(es) (1) Atrial fibrillation with RVR Current Visit: Yes Status: Acute Hospital Course: C progress note dated today Patient Condition at Discharge: Stable Plan - Discharge Summary Discharge Rx Participant: No New Discharge Prescriptions: No Action Lisinopril 40 mg PO DAILY Aspirin 650 mg PO ONCE PRN PRN Reason: NOT FEELING WELL Metoprolol Tartrate [Lopressor] 50 mg PO DIRECTED Discharge Medication List Aspirin 650 mg PO ONCE PRN 03/21/18 [History] Lisinopril 40 mg PO DAILY 03/21/18 [History] Metoprolol Tartrate [Lopressor] 50 mg PO DIRECTED 03/21/18 [History] Follow up Appointment(s)/Referral(s): [facility] [Provider Group] - 04/03/18 4:30 pm Zhang Almonte Jr, DO [Primary Care Provider] - 03/27/18 8:30 am Patient Instructions/Handouts: Heart Failure (DC), A-fib (Atrial Fibrillation) (DC), Safe Use of Anticoagulants (DC) Activity/Diet/Wound Care/Special Instructions: Kyle covered - copay is $43.50/month Discharge Disposition: HOME SELF-CARE
--- NOTE | 2018-03-24 13:34 | P.PN ---
Subjective This is a pleasant 72-year-old male past medical history significant for hypertension. He states he avoids going to doctors offices. He was at his PCPs office and had an EKG performed which showed atrial fibrillation with rapid ventricular response. This was new for the patient he has never been told he has any sort of arrhythmia in the past. Echocardiogram obtained on admission revealed impaired left ventricular systolic function with ejection fraction 30-35%, moderate TR, moderate MR and moderate to severe pulmonary hypertension. He has been initiated on amiodarone infusion and is since been transitioned to oral. He was also started on Eliquis for anticoagulation, as well as metoprolol 50 mg twice a day, aspirin 81 mg daily lisinopril 40 mg daily and Lasix 40 mg by mouth daily. He has been up and ambulating in the halls and denies any symptoms of chest discomfort, shortness of breath, dizziness or palpitations. Blood pressure 120/90 heart rate 82 afebrile maintaining oxygen saturation on room air. No new laboratory data to review. GENERAL: Well-appearing, well-nourished and in no acute distress. NECK: Supple without JVD or thyromegaly. LUNGS: Breath sounds clear to auscultation bilaterally. Respiration equal and unlabored. No wheezes, rales or rhonchi. HEART: Irregular rate and rhythm without murmurs, rubs or gallops. S1 and S2 heard. EXTREMITIES: Normal range of motion, no edema. No clubbing or cyanosis. Peripheral pulses intact. ASSESSMENT New onset paroxysmal atrial fibrillation with rapid ventricular response. Rate is now controlled patient continues to be in an irregular rhythm. Hypertension Abnormal troponins representing a type II myocardial infarction Systolic heart failure, EF 30-35%. New finding on this admission. Denies history of coronary artery disease. Will require further work-up as an outpatient to determine if ischemic v non-ischemic. PLAN Stable from a cardiac perspective. He is hemodynamically stable and asymptomatic. Will require amiodarone taper starting next week. Continue 200 mg TID for 6 more days, then 200 mg BID for 7 days then 200 mg daily thereafter. Continue lisinopril, eliquis, lopressor and lasix as currently ordered. Follow up appointment with Dr. Copeland in 2 weeks. Nurse Practitioner note has been reviewed, I agree with a documented findings and plan of care. Patient was seen and examined. Objective - Vital Signs Vital signs: Vital Signs Temp 97 F L 03/24/18 07:44 Pulse 82 03/24/18 07:44 Resp 19 03/24/18 07:44 BP 120/90 03/24/18 07:44 Pulse Ox 96 03/24/18 07:44 Intake & Output 03/23/18 03/24/18 03/24/18 18:59 06:59 18:59 Intake Total 1510 230 Output Total 400 Balance 1510 -170 Weight 101.2 kg 94 kg Intake: Intake, IV Titration 310 Amount Amiodarone 450 mg In 259 Dextrose 5% in Water 250 ml @ 1 MG/MIN 34.53 mls/ hr IV .Q7H31M [facility] Rx#: [id number] Dextrose 5% in Water 100 51 ml @ 618 mls/hr IV .Q10M [facility] with Amiodarone 150 mg Rx#:[id number] Oral 1200 230 Output: Urine 400 Other: Voiding Method Toilet Toilet Toilet # Voids 3 6 1 - Labs CBC & Chem 7: 03/24/18 06:08 03/23/18 06:28
== END 2018-03-24 13:00 | disposition home or self-care (01) | DRG 280 ==
LOC: EC 14:55 → 3SCARD 17:13
PROVIDERS: ADMIT Family Medicine; ATTEND Family Medicine
DX: I48.0 Paroxysmal atrial fibrillation (principal); I50.23 Acute on chronic systolic (congestive) heart failure; I21.A1 Myocardial infarction type 2; J45.909 Unspecified asthma, uncomplicated; I08.1 Rheumatic disorders of both mitral and tricuspid valves; I27.20 Pulmonary hypertension, unspecified; I45.10 Unspecified right bundle-branch block; I11.0 Hypertensive heart disease with heart failure; Z82.49 Family history of ischemic heart disease and other diseases of the circulatory system; Z87.01 Personal history of pneumonia (recurrent); Z87.891 Personal history of nicotine dependence; Z97.2 Presence of dental prosthetic device (complete) (partial); Z98.890 Other specified postprocedural states; Z79.82 Long term (current) use of aspirin; Z79.899 Other long term (current) drug therapy
CPT/HCPCS: 36415; 71046; 80048; 80053; 80061; 82550; 82553; 83735; 83880; 84439; 84443; 84481; 84484; 85025; 85049; 85610; 85730; 93005; 93306; 96365; 96366; 96368; 96376; 99291

== ENCOUNTER 2021-07-19 12:44 | Emergency (ER) | payer BC, MEDICARE ==
[2021-07-19 13:41] VITALS: BP 128/63; PULSE 67; RESP 18; TEMP 97.7
--- NOTE | 2021-07-19 14:41 | ED ---
General Adult HPI - General Chief complaint: Recheck/Abnormal Lab/Rx Stated complaint: Incision problem Time Seen by Provider: 07/19/21 14:15 Source: patient, RN notes reviewed, old records reviewed Mode of arrival: ambulatory Limitations: no limitations - History of Present Illness Initial comments: This is a 75-year-old male who presents emergency Department stating he had a pacemaker placed at another hospital on July 06. Patient states since his been a lot of bruising around the pacemaker and it's losing a little bit of old blood he states per patient states he is on a blood thinner and it concerned him that maybe he is losing too much blood. Patient states here he does not hurt anymore than normal and he states is no redness and he said no fever or chills. Patient denies any difficulty breathing shortness of breath palpitations. Patient was just concerned about the oozing from the site. - Related Data Home Medications Medication Instructions Recorded Confirmed Aspirin 650 mg PO ONCE PRN 03/21/18 03/21/18 Metoprolol Tartrate [Lopressor] 50 mg PO DIRECTED 03/21/18 03/21/18 lisinopriL 40 mg PO DAILY 03/21/18 03/21/18 Allergies Allergy/AdvReac Type Severity Reaction Status Date / Time No Known Allergies Allergy Verified 07/19/21 13:39 Review of Systems ROS Statement: Those systems with pertinent positive or pertinent negative responses have been documented in the HPI. ROS Other: All systems not noted in ROS Statement are negative. Past Medical History Past Medical History: Asthma, Hypertension Additional Past Medical History / Comment(s): asthma as chil- no problem since,hayfever, "shattered lt elboe(sx), pt stated "it takes med a bit to get stream going when i pee" History of Any Multi-Drug Resistant Organisms: None Reported Past Surgical History: Orthopedic Surgery, Tonsillectomy Additional Past Surgical History / Comment(s): lt elbow sx,4 upper dental implants Past Anesthesia/Blood Transfusion Reactions: No Reported Reaction Past Psychological History: No Psychological Hx Reported Smoking Status: Never smoker Past Alcohol Use History: None Reported Past Drug Use History: None Reported - Past Family History Mother Family Medical History: Myocardial Infarction (MD) Additional Family Medical History / Comment(s): age 50 from [place] Father Additional Family Medical History / Comment(s): age 71 -[place] Brother(s) History Unknown: Yes Additional Family Medical History / Comment(s): has 3 brothers hx unk Sister(s) History Unknown: Yes Additional Family Medical History / Comment(s): 1 sister- hx unk General Exam - General Exam Comments Initial Comments: GENERAL: Patient is well-developed and well-nourished. Patient is nontoxic and well- hydrated and is in no acute distress. ENT: Neck is soft and supple. No significant lymphadenopathy is noted. Oropharynx is clear. Moist mucous membranes. Neck has full range of motion without eliciting any pain. EYES: The sclera were anicteric and conjunctiva were pink and moist. Extraocular movements were intact and pupils were equal round and reactive to light. Eyelids were unremarkable. PULMONARY: Unlabored respirations. Good breath sounds bilaterally. No audible rales rhonchi or wheezing was noted. CARDIOVASCULAR: There is a regular rate and rhythm without any murmurs gallops or rubs. ABDOMEN: Soft and nontender with normal bowel sounds. SKIN: The incision site shows no signs of infection there is a little dried blood on his shirt as well as and a small area of the incision there doesn't appear to be some fluctuance under the skin consistent with a hematoma. NEUROLOGIC: Patient is alert and oriented x3. Cranial nerves II through XII are grossly intact. Motor and sensory are also intact. Normal speech, volume and content. Symmetrical smile. MUSCULOSKELETAL: Normal extremities with adequate strength and full range of motion. LYMPHATICS: No significant lymphadenopathy is noted PSYCHIATRIC: Normal psychiatric evaluation. Limitations: no limitations Course Vital Signs 07/19/21 13:39 Temperature 97.7 F Pulse Rate 67 Respiratory 18 Rate Blood Pressure 128/63 O2 Sat by Pulse 95 Oximetry Medical Decision Making - Medical Decision Making I told the patient to be doing a CBC and checking out the hemoglobin as well as the white count. I went back to see the patient he had already left according to the nurse. - Lab Data Result diagrams: 07/19/21 14:43 Lab Results 07/19/21 Range/Units 14:43 WBC 12.3 H (3.8-10.6) k/uL RBC 4.96 (4.30-5.90) m/uL Hgb 14.9 (13.0-17.5) gm/dL Hct 45.1 (39.0-53.0) % MCV 91.0 (80.0-100.0) fL MCH 30.0 (25.0-35.0) pg MCHC 33.0 (31.0-37.0) g/dL RDW 13.4 (11.5-15.5) % Plt Count 336 (150-450) k/uL MPV 7.9 Neutrophils % 70 % Lymphocytes % 19 % Monocytes % 6 % Eosinophils % 3 % Basophils % 1 % Neutrophils # 8.6 H (1.3-7.7) k/uL Lymphocytes # 2.3 (1.0-4.8) k/uL Monocytes # 0.8 (0-1.0) k/uL Eosinophils # 0.4 (0-0.7) k/uL Basophils # 0.1 (0-0.2) k/uL Disposition Clinical Impression: Pacemaker complications Disposition: Left Against Medical Advice Referrals: Zhang Almonte Jr, DO [Primary Care Provider] - 1-2 days Time of Disposition: 15:49
[2021-07-19 15:10] LABS: Basophils # (A) 0.1 k/uL (0-0.2); Basophils % (A) 1 %; Eosinophils # (A) 0.4 k/uL (0-0.7); Eosinophils % (A) 3 %; HCT 45.1 % (39.0-53.0); HGB 14.9 gm/dL (13.0-17.5); Lymphocytes # (A) 2.3 k/uL (1.0-4.8); Lymphocytes % (A) 19 %; Mean Platelet Volume 7.9; Monocytes # (A) 0.8 k/uL (0-1.0); Monocytes % (A) 6 %; Neutrophils # (A) 8.6 k/uL (1.3-7.7); Neutrophils % (A) 70 %; Platelet Count 336 k/uL (150-450); RBC 4.96 m/uL (4.30-5.90); RDW 13.4 % (11.5-15.5); WBC 12.3 k/uL (3.8-10.6)
== END 2021-07-19 15:35 | disposition left against medical advice (07) ==
LOC: EC 12:44
DX: T82.9XXA Unspecified complication of cardiac and vascular prosthetic device, implant and graft, initial encounter (principal); I10 Essential (primary) hypertension; J45.909 Unspecified asthma, uncomplicated; Z79.82 Long term (current) use of aspirin; Z79.899 Other long term (current) drug therapy
CPT/HCPCS: 36415; 85025; 99283